=== PATIENT | female | born 1960 | race Caucasian/White ===

== ENCOUNTER 2017-07-15 13:56 | Emergency (ER) | payer OTHER ==
[~2017-07-15] VITALS: Ht 142.2 cm; Wt 83.9 kg
[2017-07-15 14:51] LABS: ABSOLUTE BASOPHIL COUNT 0 /CUMM (0.0-0.2); ABSOLUTE EOSINOPHIL COUNT 0 /CUMM (0.0-0.7); ABSOLUTE GRANULOCYTE CT 3.8 /CUMM (1.4-6.5); ABSOLUTE LYMPH COUNT 1.4 /CUMM (1.2-3.4); ABSOLUTE MONOCYTE COUNT 0.9 /CUMM (0.10-0.60); BASOPHIL % 0.3 % (0.0-2.0); EOSINOPHIL % 0.3 % (0-5); GRANULOCYTE % 61.7 % (42.2-75.2); HEMATOCRIT 44.5 % (37-47); MEAN CORPUSCULAR HGB 26.1 PG (27.0-31.0); MEAN CORPUSCULAR HGB CONC 32.7 G/DL (33.0-37.0); MEAN CORPUSCULAR VOLUME 79.7 FL (81.0-99.0); MEAN PLATELET VOLUME 8.8 FL (7.4-10.4); PLATELET COUNT 186 /CUMM (130-400); RBC DISTRIBUTION WIDTH 13.9 % (11.5-14.5); RED BLOOD CELL CT 5.59 /CUMM (4.20-5.40); WHITE BLOOD CELL COUNT 6.2 /CUMM (4.8-10.8)
[2017-07-15] MEDS ORDERED: ZOFRAN ODT4 M1 SL (17:43)
--- NOTE | 2017-07-15 17:43 | ED GENERAL ADULT ---
History of Present Illness General Chief Complaint: General Adult Stated Complaint: PT STATES " I THINK IM DEHYDRATED" Source: patient Exam Limitations: no limitations Vital Signs & Intake/Output Vital Signs & Intake/Output Vital Signs Date Time Temp Pulse Resp B/P B/P Pulse O2 O2 Flow FiO2 Mean Ox Delivery Rate 07/15 1744 98.0 96 18 134/78 99 Room Air 07/15 1730 Room Air ED Intake and Output 07/16 0000 07/15 1200 Intake Total 0 Output Total Balance 0 Intake, Oral 0 Patient 185 lb Weight Weight Reported by Patient Measurement Method Allergies Coded Allergies: No Known Allergies (07/15/17) Reconcile Medications Nystatin 100,000 UNIT/ML ORAL.SUSP 5 ML PO 4 TIMES/DAY thrush Ondansetron (Zofran Odt) 4 MG TAB.RAPDIS 1 TAB SL TID PRN NAUSEA Triage Note: PT STATES SHE THINKS SHE IS DEHYDRATED BECAUSE HER TONGUE IS WHITE. PT STATES SHE HASN'T BEEN ABLE TO EAT SINCE FRIDAY. PT REPORTS NOT HAVING ANY TASTE. PT STATES SHE HAS NAUSEA SINCE FRIDAY. PT DENIES VOMITING. PT WENT TO CLINIC YESTERDAY AND THEY FELT SHE WAS DEHYDRATED. PT REPORTS HAVING DIARRHEA SINCE FRIDAY EVENING. Triage Nurses Notes Reviewed? yes Onset: Gradual Duration: day(s): (5), changing over time, continues in ED Timing: single episode today Injury Environment: home Severity: mild, moderate No Modifying Factors: none LMP (ages 10-50): post menopausal, unknown : No Patient currently breastfeeds: No HPI: 56-year-old female past medical history of hypothyroidism presents for evaluation of dry mouth, nausea and "white tongue". Patient states that she feels like she is dehydrated because when she looks at her tongue looks white to her. There is no white discharge on her tongue. She reports feeling nauseous when eating but has been able to eat and drink. No vomiting. No abdominal pain chest pain shortness of breath or fever. She does report a single episode of diarrhea yesterday without blood. She had a normal bowel movement today. She is joint pains back pain urinary symptoms. No new medications. Past History Travel History Traveled to [place] past 21 day No Medical History Any Pertinent Medical History? see below for history Endocrine: hypothyroidism Surgical History Surgical History: non-contributory Psychosocial History What is your primary language Nigerian Tobacco Use: Never used ETOH Use: denies use Illicit Drug Use: denies illicit drug use Family History Hx Contributory? No Review of Systems Review of Systems Constitutional: Reports: no symptoms. EENTM: Reports: see HPI. Respiratory: Reports: no symptoms. Cardiovascular: Reports: no symptoms. GI: Reports: see HPI. Genitourinary: Reports: no symptoms. Musculoskeletal: Reports: no symptoms. Skin: Reports: no symptoms. Neurological/Psychological: Reports: no symptoms. Hematologic/Endocrine: Reports: no symptoms. Immunologic/Allergic: Reports: no symptoms. All Other Systems: Reviewed and Negative Physical Exam Physical Exam General Appearance: well developed/nourished, no apparent distress, alert, awake Head: atraumatic, normal appearance Eyes: Bilateral: normal appearance, PERRL, EOMI. Ears, Nose, Throat: normal pharynx, normal ENT inspection, hearing grossly normal Neck: normal inspection, supple, full range of motion Respiratory: normal breath sounds, chest non-tender, no respiratory distress, lungs clear Cardiovascular: regular rate/rhythm, normal peripheral pulses Peripheral Pulses: 2+ radial (R), 2+ radial (L) Gastrointestinal: soft, non-tender Back: normal inspection, normal range of motion, no vertebral tenderness Extremities: normal inspection, normal range of motion, no edema Neurologic/Psych: no motor/sensory deficits, awake, alert, oriented x 3, normal gait, normal mood/affect Skin: intact, normal color, warm/dry Lymphatic: no anterior cervical alaina Core Measures ACS in differential dx? No CVA/TIA Diagnosis: No Sepsis Present: No Sepsis Focused Exam Completed? No Progress Differential Diagnoses I considered the following diagnoses in my evaluation of the patient: [Oral thrush, dehydration, electrolyte abnormality, viral syndrome, gastroenteritis] Plan of Care: Orders Procedure Date/time Status Add-on Test (ER Only) 07/15 1740 Active HEPATITIS PANEL 07/15 1440 Complete Patient seen and evaluated. She is reporting drymouthed nausea and one episode of diarrhea. Her abdomen is soft and nontender she has no chest pain or shortness of breath vital signs are stable. Blood work shows mildly elevated LFTs. A hepatitis panel was added on. No signs of clinical dehydration. Patient was able tolerate food and fluids here. There is no signs of oral thrush or patient is still requesting treatment. She was given a prescription for nystatin and Zofran. Advised her to use Tylenol and Motrin for pain follow up with primary care doctor to recheck LFTs and review hepatitis panel. He planned foods like salsa toast discussed return precautions in detail patient agrees the plan. Initial ED EKG: none Departure Departure Disposition: HOME OR SELF CARE Condition: Stable Clinical Impression Primary Impression: Viral syndrome Referrals: Jacki Camilo (PCP/Family) Additional Instructions: REST AND DRINK PLENTLY OF FLUIDS. TYLENOL/IBUPROFEN FOR PAIN. ZOFRAN FOR NAUSEA. EAT BLAND FOODS SUCH BANNANAS RICE APPLE SAUCE OR TOAST. MAKE A FOLLWO UP APPT WITH YOUR PCP FOR THIS WEEK TO RIEVEW ALL RESULTS OF TODAYS VISIT AND TO REASSESS YOUR SYMPTOMS. MONITOR YOUR SYMPTOMS AND RETURN WITH ANY CONCERNS. Departure Forms: Customer Survey General Discharge Information Prescriptions: Current Visit Scripts Ondansetron (Zofran Odt) 1 TAB SL TID PRN NAUSEA #15 TAB Nystatin 5 ML PO 4 TIMES/DAY #200 ML Critical Care Note Critical Care Note Critical Care Time: non-applicable
[2017-07-15 17:44] VITALS: BP 134/78
[2017-07-15] MEDS ORDERED: NYSTATIN100000 UNI PO (17:49)
== END 2017-07-15 17:45 ==
LOC: ERH 13:56
PROVIDERS: Physician Assistant Medical
DX: B34.9 Viral infection, unspecified (principal)